=== PATIENT | male | born 1980 | race Caucasian/White ===

== ENCOUNTER 2019-02-01 18:28 | Emergency (ER) | payer OTHER, SELFPAY ==
[2019-02-01 18:31] VITALS: BP 129/80; PULSE 74; RESP 20; TEMP 36.2; O2SAT 99; BMI 24.8
--- NOTE | 2019-02-01 18:49 | DI.RAD.S_ITS ---
PROCEDURE: XR CHEST 1V INDICATIONS: Chest pain TECHNIQUE: One view of the chest was acquired. COMPARISON: None. FINDINGS: Surgical changes and devices: None. Lungs and pleura: Lungs are clear. No pleural effusions or pneumothorax. Mediastinum: Mediastinal contours appear normal. Heart size is normal. Bones and chest wall: No suspicious bony lesions. Overlying soft tissues appear unremarkable. IMPRESSION: No acute cardiopulmonary abnormality. Dictated by: Capo Orozco M.D. on 02/01/2019 at 19:14 Approved by: Capo Orozco M.D. on 02/01/2019 at 19:14
--- NOTE | 2019-02-01 18:58 | ED_ITS ---
HPI - Back Pain/Injury General Chief Complaint: Back Pain/Injury Stated Complaint: back pain and jaw pain Time Seen by Provider: 02/01/19 18:48 Source: patient Mode of arrival: ambulatory Limitations: no limitations History of Present Illness HPI Narrative: 38-year-old male here for evaluation of symptoms that he had approximately 2 hours prior to arrival here in the emergency department. He states he was sitting at his desk when he had a sudden sharp pain from his left shoulder that radiated up/through his left side of his body to his neck. States that lasted less than 1 minute. He did not associated with movement or palpation. He states to took a couple deep breaths. Completely resolved. Has not had anything like this in the past and has not had anything like this since then. Related Data Allergies Allergy/AdvReac Type Severity Reaction Status Date / Time No Known Drug Allergies Allergy Verified 02/01/19 18:34 Review of Systems Constitutional Denies fever(s) and Denies headache(s) ENT Ears, Nose, Mouth, and Throat: Denies headache(s) Cardiovascular Reports chest pain, Denies palpitations and Denies dyspnea Respiratory Denies dyspnea Gastrointestinal Gastrointestinal: Denies abdominal pain Musculoskeletal Comments: Left shoulder/upper back pain Integumentary/Breasts Denies lesions and Denies rash Neurologic Denies headache(s) Endocrine Denies palpitations Hematologic/Lymphatic Denies easy bleeding and Denies easy bruising [facility] Medical History Patient denies medical problems (Acute) Social History Smoking Status: Former smoker Social History Smoking Status: Former smoker Exam Initial Vital Signs Initial Vital Signs: Vital Signs Temperature 97.2 F L 02/01/19 18:31 Pulse Rate 74 02/01/19 18:31 Respiratory Rate 20 02/01/19 18:31 Blood Pressure 129/80 02/01/19 18:31 Pulse Oximetry 99 02/01/19 18:31 Const General: cooperative, well developed and well groomed Orientation: alert, awake and oriented x3 HENMT Head: normal to inspection and normocephalic Chest Chest: No crepitus and No tenderness Resp Effort & Inspection: normal respiratory effort Auscultation: clear to auscultation bilaterally Cardio Rate: regular rate Rhythm: regular rhythm Skin Lesions: no lesions Rashes: no rashes Neuro General: alert and awake Cognition: normal cognition Speech: speech normal Extrem General: normal to inspection and capillary refill normal Psych Appearance: grossly normal and well kempt Course Orders Ordered: ED Orders 02/01/19 18:35 EKG-12 Lead Stat 02/01/19 18:49 XR chest 1V Stat Vital Signs - 8 hr 02/01/19 18:31 02/01/19 19:23 02/01/19 19:44 Temperature 97.2 F L Pulse Rate 74 76 74 Respiratory Rate 20 12 18 Blood Pressure 129/80 133/80 Blood Pressure [Right Arm] 129/88 Pulse Oximetry 99 96 99 MDM - Back Pain/Injury Imaging Data Chest x-ray: Radiologist's impression: [address] [address] XRay Report Signed Patient: Uri Hollis#: [id number] : 1980Acct:[id number] Age/Sex: 38 / MDate of Service: 02/01/19 Loc: ED Accession Number: [id number] Procedure: XR chest 1V Ordering Provider: Colton Kemp D.O. PROCEDURE: XR CHEST 1V INDICATIONS: Chest pain TECHNIQUE: One view of the chest was acquired. COMPARISON: None. FINDINGS: Surgical changes and devices: None. Lungs and pleura: Lungs are clear. No pleural effusions or pneumothorax. Mediastinum: Mediastinal contours appear normal. Heart size is normal. Bones and chest wall: No suspicious bony lesions. Overlying soft tissues appear unremarkable. IMPRESSION: No acute cardiopulmonary abnormality. Dictated by: Capo Orozco M.D. on 02/01/2019 at 19:14 Approved by: Capo Orozco M.D. on 02/01/2019 at 19:14 ECG Data Attestation: I personally reviewed and interpreted this ECG as follows: Prior ECG tracings: not available for review Interpretation: Sinus rhythm Normal axis Normal QRS Normal QTC No ST T wave changes MDM Narrative Medical decision making narrative: Patient is currently asymptomatic. Normal vital signs, normal EKG, normal chest x-ray, low suspicion for ACS, low suspicion for PE. Low suspicion for TIA/CVA. Unsure the exact etiology of the symptoms however I do not feel like an emergent process is occurring. Also low suspicion for TAD. Patient given return precautions and follow-up instructions. Hold on further workup for now. He expressed understanding agreement plan. Discharge Plan Departure Patient Disposition: Home Clinical Impression: Thoracic back pain Qualifiers: Chronicity: acute Back pain laterality: left Qualified Code(s): M54.6 - Pain in thoracic spine Discharge Date/Time: 02/01/19 19:44 Interventions: ED Discharge Assessment Last Done: 02/01/19 19:44 Activity Restrictions/Additional Instructions: I do recommend that you follow up with your medical department. You have no restrictions on your activity. Return to the emergency department for any new or worsening symptoms
[2019-02-01 19:23] VITALS: BP 129/88; PULSE 76; RESP 12; O2SAT 96
[2019-02-01 19:44] VITALS: BP 133/80; PULSE 74; RESP 18; O2SAT 99
== END 2019-02-01 19:44 | disposition home or self-care (01) ==
PROVIDERS: Emergency Provider Emergency Medicine
DX: M54.6 Pain in thoracic spine (principal)
CPT/HCPCS: 36591; 71045; 93005; 99282; 99284

== ENCOUNTER → 2020-03-08 11:22 | Outpatient (CLI) | payer OTHER, SELFPAY ==
[2020-03-10 09:21] LABS: COVID19 Sendout Not Detected (Not Detect)
== END ==
PROVIDERS: Visit Provider Nurse Practitioner
DX: Z11.59 Encounter for screening for other viral diseases (principal)
CPT/HCPCS: 87635

== ENCOUNTER 2020-03-11 09:36 | Day surgery (SDC) | payer OTHER, SELFPAY ==
[2020-03-06 14:23] VITALS: BMI 25.1
[2020-03-11] VITALS (7 sets, daily range): BP systolic 122–150; BP diastolic 80–99; PULSE 73–100; RESP 12–20; TEMP 36.3–37.5; O2SAT 95–99; BMI 27.3
[2020-03-11] MEDS: LACTATED RINGERS 1,000 ML 42 ML IV (09:59)
--- NOTE | 2020-03-11 10:59 | PM.PREOP ---
Pre-operative Note COVID-19 COVID-19 status: Negative Interval Note History & Physical reviewed/Exam performed by Physician: Yes Changes to H&P: No
[2020-03-11] MEDS: CEFAZOLIN 2 GM/100 ML FROZ.PIGGY IV (11:15)
--- NOTE | 2020-03-11 11:35 | SUR.OPER ---
Supine on padded OR bed, head on pillow, arms secured on padded arm boards at <90 degrees abduction, legs uncrossed, safety belt at thigh, tape over blanket over lower legs.
[2020-03-11] MEDS: BUPIVACAINE 0.25% (PF) VIAL 30 ML INJ (11:40)
--- NOTE | 2020-03-11 12:33 | P.OP_ITS ---
Operative Date/Time/Diagnoses Date of procedure: 03/11/20 Time of procedure: 12:33 Pre-op diagnosis: left inguinal hernia Post-op diagnosis: same Procedure & Clinicians Procedure: open left inguinal hernia repair with mesh Same procedure as scheduled: Yes Indications: symptomatic left inguinal hernia reducible Surgeon: Porter Araiza Anesthesia Type: General Operative Notes Findings: direct floor defect Specimen(s): none sent Estimated Blood Loss (mL): 30 Procedure in detail: The patient was placed supine on the table and bilateral lower extremity compression devices were applied. Anesthesia was induced they were intubated with an LMA and received 2g of Ancef. A time-out was performed. They were prepped and draped in sterile fashion. The left external inguinal ring and the anterior superior iliac crest were identified and marked. 1 finger breath above the inguinal ligament the skin was infiltrated with 0.25% b upivacaine. The skin incision was made here and the subcutaneous tissues were divided with electrocautery exposing the external oblique aponeurosis which was then opened along the direction of its fibers. Using blunt dissection the internal oblique aporneurosis was from the external oblique upper leaflet to identify the iliohypogastric nerve. Using a kittner the cord was carefully dissected away from the inguinal canal adjacent to the pubic tubercle. The cord including the vas deferens, testicular bloody supply, ilioguinal and genital nerve were encircled with a [place] drain. A direct floor defect was identified and it was reduced into the abdomen and the internal oblique aporneuorsis was approximated to the inguinal ligament with Ethibond suture to reapproximate the floor. The cremasteric fibers surrounding the cord were divided using electrocautery adjacent to the internal ring.. The vas deferens and the testicular vessels were preserved and protected. There was no evidence of an indirect hernia. I selected a 7x 15 cm lightweight Pro Loop hernia mesh. The inferior medial aspect of the mesh was anchored to insertion of the rectus muscle to the pubic tubercle such that there was approximately 2 cm of tubercle overlap with Ethibond and then was run continuously along the inferior edge of the mesh to the shelving edge of the inguinal ligament. Interrupted 3 0 Vicryl suture was used to anchor the superior aspect of the mesh to the conjoined tendon in several places. The tails were then reapproximated loosely around the spermatic cord. The tails of the mesh were then tucked under the external oblique aponeurosis. The repair was checked for hemostasis. The wound was irrigated with sterile saline. The external oblique aponeurosis was reapproximated in a running fashion using 3 0 Vicryl. The subcutaneous tissues were reapproximated with 3 0 Vicryl skin closed with 4 0 Monocryl followed by the application of Dermabond. At the end of the operation I ensured that both testicles were within the scrotum. The sponge instrument count at the end operation was correct. The patient emerged from anesthesia was extubated and transferred to the postoperative care unit in stable condition. A total of 30 ml of of 0.25% bupivicaine was used to infiltrate the skin. Complications: none Post-operative Condition: stable Disposition: same day surgery
[2020-03-11] MEDS: OXYCODONE/ACETAMINOPHEN 5/325 TABLET 1 TAB PO (12:47)
== END 2020-03-11 13:24 | disposition home or self-care (01) ==
PROVIDERS: PCP Student in an Organized Health Care Education/Training Program; Referring Provider Student in an Organized Health Care Education/Training Program; Visit Provider Surgery
PROC: (CPT 49505; principal; 2020-03-11 10:45)
DX: K40.90 Unilateral inguinal hernia, without obstruction or gangrene, not specified as recurrent (principal)
CPT/HCPCS: 49505; C1781; J0690; J1100; J1885; J2250; J2405; J2704; J3010